=== PATIENT | female | born 1950 | race Caucasian/White ===

== ENCOUNTER → 2018-09-19 | Day surgery (SDC) | payer MEDICARE ==
[~2018-09-19] MED LIST: APIX5TAB PO; ASPI81TA50 PO; BIOT25006 PO; DILT240C2 PO; DOCU100T11 PO; GEMF600T8 PO; HYDR12.58 PO; IV RINGERS,LACTATED 1000ML 1,000 ML IV SCH; LIDOCAINE 2% PF 5 ML VIAL. ONE; LISI-334 PO; METO25TA4 PO; MULT1TAB52 PO; OMEG1CAP6 PO; OMEP20TA63 PO; OXYB5TAB7 PO; PROPOFOL 40 ML IV ONE
[2018-09-19 07:42] VITALS: BP 117/59
--- NOTE | 2018-09-19 13:30 | HP ---
ADMIT DATE: 09/19/2018 UPDATED HISTORY AND PHYSICAL REFERRING PHYSICIAN: Dr. Sridhar Harden. HISTORY OF PRESENT ILLNESS: A 67-year-old female with past medical history significant for sleep apnea, arthritis, hypertension, Bardales's, hyperlipidemia, is seen for interval colonoscopy, last exam was performed in 2008, which revealed diverticular disease. Bowel habits are regular without diarrhea or constipation. Family history is unrevealing for colorectal cancer. In addition, she has a history of Bardales's, for which she has been on Prilosec 20 mg p.o. every day. She does avoid alcohol, nicotine and caffeine products. There has been no dysphagia, odynophagia, no change in weight. Otherwise, no additional complaints. PAST MEDICAL HISTORY: Sleep apnea, osteoarthrosis, hypertension, hyperlipidemia, Bardales's diverticulosis. ALLERGIES: PENICILLINS. MEDICATIONS: Include Eliquis, aspirin, Biotin, diltiazem, gemfibrozil, hydrochlorothiazide, lisinopril, omega-3, omeprazole 20 mg daily, oxybutynin. FAMILY AND SOCIAL HISTORY: Nonsmoker. Social drinker. Family history is significant for lung cancer with her father, Hodgkin's disease with her mother, and diabetes with her grandmother. PAST SURGICAL HISTORY: Lumpectomy and hysterectomy. REVIEW OF SYSTEMS: Per records. PHYSICAL EXAMINATION: GENERAL: Reveals a well-nourished, well-developed female who is alert, cooperative, in no acute distress. VITAL SIGNS: Temperature is 98.3, pulse 90, respirations 20. HEENT: Normocephalic and atraumatic. Pupils and extraocular muscles are not tested. Sclerae anicteric. NECK: Supple. LUNGS: Clear. CARDIOVASCULAR: Reveals an S1, S2 without S3, S4 or appreciable murmur. ABDOMEN: Soft abdomen. Normal bowel sounds. No appreciable splenomegaly. EXTREMITIES: Reveals no cyanosis, clubbing or edema. IMPRESSION: 1. Bardales's. Surveillance exam is recommended at this time. Risks and benefits of procedure were discussed. The patient is willing to proceed. 2. Colorectal screening is warranted. Risks and benefits were discussed. The patient is willing to proceed. JANEL MEADOWS MD DR: TIARA/ivana JOB#: [id number] / [id number]
--- NOTE | 2018-09-20 14:06 | PATHOLOGY ---
[facility] Accession Number: [id number] . 01 Material submitted: . esophagus - DISTAL ESOPHAGUS BIOPSY. Modifiers: distal . 01 Clinical history: . Rule out Bardales's . 02 Diagnosis: Esophageal biopsies, distal esophagus: - Segments of hyperplastic squamous esophageal mucosa consistent with reflux esophagitis. (JPM:corbin; 09/20/2018) QMS/09/20/2018 . 02 Comment: Sections of the distal esophageal biopsy reveal segments of focally tangentially oriented hyperplastic squamous esophageal mucosa. The findings are consistent with reflux esophagitis. There is no evidence of Bardales's change, dysplasia, or malignancy. (JPM:corbin; 09/20/2018) . 02 Electronically signed: . Case Rico MD, Pathologist NPI- [id number] . 01 Gross description: . Received in formalin labeled "October, distal esophagus," are 4 segments of villarreal soft tissue measuring 1.1 x 0.6 x 0.2 cm in aggregate dimensions and ranging from 0.3 to 0.5 cm in maximum dimension. The specimen is submitted entirely in cassette A1. (TSD; 09/19/2018) TOB/TOB . 02 Pathologist provided ICD-10: K21.0 . 02 CPT . 890830 Specimen Comment: Report sent to / DR BOWEN Performed at: 01 [facility] [address] [facility] [address], [place] [id number] MD Danny Cabrera MD Phone: [phone] Performed at: 02 [facility] [address], [place] [id number] MD Case Rico MD Phone: [phone]
== END | disposition home or self-care (01) ==
LOC: ENDOS 05:58
PROVIDERS: ATTEND Internal Medicine Gastroenterology
DX: Z12.11 Encounter for screening for malignant neoplasm of colon (principal); K57.30 Diverticulosis of large intestine without perforation or abscess without bleeding; K64.0 First degree hemorrhoids; K21.0 Gastro-esophageal reflux disease with esophagitis; I10 Essential (primary) hypertension; I48.91 Unspecified atrial fibrillation; G47.33 Obstructive sleep apnea (adult) (pediatric); E78.5 Hyperlipidemia, unspecified; J45.909 Unspecified asthma, uncomplicated; Z85.41 Personal history of malignant neoplasm of cervix uteri; Z85.43 Personal history of malignant neoplasm of ovary; Z90.710 Acquired absence of both cervix and uterus; Z98.890 Other specified postprocedural states; Z88.0 Allergy status to penicillin; Z79.82 Long term (current) use of aspirin; M19.90 Unspecified osteoarthritis, unspecified site
CPT/HCPCS: 43239; 88305; G0121; J2001; J2704; 45378

== ENCOUNTER 2019-07-01 10:17 | Day surgery (SDC) | payer MEDICARE ==
[~2019-07-01] VITALS: Ht 157.5 cm; Wt 99.0 kg
[~2019-07-01 10:17] MED LIST changes: +BUDE10.2 IH; +CLINDAMYCIN 900MG PREMIX 50 ML IV PRN; +FLEC50TA PO; +HYDROmorphone 2 MG/ML VIAL IV PRN; +LIDOCAINE 1% PF 2 ML VIAL. ID PRN; -LIDOCAINE 2% PF 5 ML VIAL. ONE; +MORPHINE SULFATE 2 MG/ML VIAL. IV PRN; +ONDANSETRON PF 4 MG/2 ML VIAL. IV PRN; +OXYB5TAB10 PO; -OXYB5TAB7 PO; +PROCHLORPERAZINE 10 MG/2 ML VIAL. IV PRN; -PROPOFOL 40 ML IV ONE; +fentaNYL PF VIAL 100 MCG/2 ML VIAL IV PRN
[2019-07-01] MEDS ORDERED: LIDOCAINE 2% PF 5 ML VIAL. ONE (10:38)
[2019-07-01] MEDS ORDERED: PROPOFOL 20 ML IV ONE ×2 (10:38→11:56)
[2019-07-01] MEDS ORDERED: ONDANSETRON PF 4 MG/2 ML VIAL. ONE (10:38)
[2019-07-01] MEDS ORDERED: DEXAMETHASONE SOD PHOS 4 MG/ML VIAL ONE (10:38)
[2019-07-01] MEDS ORDERED: fentaNYL PF VIAL 100 MCG/2 ML VIAL ONE (10:52)
[2019-07-01] MEDS ORDERED: BUPIVACAINE-EPI 0.5%-1:200000 MPF 30 ML VIAL. ONE (11:59)
[2019-07-01] MEDS ORDERED: SURGICEL HEMOSTAT 4X8 EACH. ONE (12:04)
[2019-07-01] MEDS: fentaNYL PF VIAL 100 MCG/2 ML VIAL IV PRN ×2 (12:30→12:40)
--- NOTE | 2019-07-01 12:39 | DISCH ---
DISCHARGE INSTRUCTIONS Condition on Discharge Condition on Discharge: Stable Activity After Discharge Activity Instructions for Disc: Activity as tolerated, Avoid exertion Lifting Instructions after Dis: No heavy lifting Driving Instructions after Dis: Do not drive today Diet after Discharge Diet after Discharge: Regular Wound Incision Care Wound/Incision Care: Ice to area for comfort Other wound/incision instructi: may shower, no tub bathes Follow-Up Follow up with: Raj 07/04 in the office AWILDA CRUZ MD Jul 01, 2019 12:39
[2019-07-01] MEDS ORDERED: HYDR-3164 PO (12:40)
--- NOTE | 2019-07-01 12:46 | PDOC ---
BRIEF OPERATIVE NOTE Date: Jul 01, 2019 Pre-Op Diagnosis left groin abscess Post-Op Diagnosis same Procedure Performed incision and drainage Surgeon Raj Anesthesia Type: General (LMA) Blood Loss 10cc IV Fluid 250cc Specimens Obtained cultures Findings collection from old drainage site proximally Complications none AWILDA CRUZ MD Jul 01, 2019 12:45
[2019-07-01] MEDS ORDERED: HYDROcodone/APAP 5/325MG 1 TAB TABLET PO ONE (13:00)
[2019-07-01 13:45] VITALS: BP 137/32
--- NOTE | 2019-07-01 20:01 | OP ---
DATE OF SURGERY: 07/01/2019 PREOPERATIVE DIAGNOSIS: Left groin abscess. POSTOPERATIVE DIAGNOSIS: Left groin abscess. PROCEDURE: Incision and drainage. SURGEON: Ziyad Cruz MD ANESTHESIA: General LMA. ESTIMATED BLOOD LOSS: 10 mL. INTRAVENOUS FLUIDS: 250 mL. DESCRIPTION OF PROCEDURE: The patient brought to the operating suite, given a general LMA and the left groin prepped and draped in usual sterile fashion. A 0.5% Marcaine with epinephrine was infiltrated around the process and the previously made drainage site was probed with a hemostat. This demonstrated a subcutaneous track superiorly. A traction incision was made. Digital exploration carried out. Cultures obtained. Wound irrigated with normal saline and when hemostasis was present and a correct sponge count obtained, the wound was dressed with Surgicel and a Dioni drain secured with a silk stitch. Sterile dressing applied. The patient awakened from her anesthetic and taken to the recovery room in satisfactory condition. ZIYAD CRUZ MD DR: SHANNAN/ivana JOB#: [id number] / [id number]
== END 2019-07-01 14:30 | disposition home or self-care (01) ==
LOC: SURG 10:17
PROVIDERS: ATTEND Surgery
DX: L02.214 Cutaneous abscess of groin (principal); I10 Essential (primary) hypertension; I48.91 Unspecified atrial fibrillation; G47.30 Sleep apnea, unspecified; F41.9 Anxiety disorder, unspecified; Z88.0 Allergy status to penicillin; Z88.8 Allergy status to other drugs, medicaments and biological substances; Z79.899 Other long term (current) drug therapy; Z90.710 Acquired absence of both cervix and uterus; Z98.890 Other specified postprocedural states
CPT/HCPCS: 10060; 87071; 87075; A7015; J0780; J1100; J2001; J2405; J2704; J3010; J3490; A4461